=== PATIENT | male | born 1950 | race Caucasian/White ===

== ENCOUNTER 2018-07-20 08:38 | Outpatient (CLI) | payer OTHER ==
[~2018-07-20 08:38] MED LIST: ASPIR 8181 MG; ATORVASTATIN CA80 MG; INTEGRA PLUS C1 EACH; JANUMET XR 50-1 EAC1; NORVASC5 MG; PANTOPRAZOLE SO20 MG; PLAVIX75 MG; SYNTHROID50 MCG; VITAMIN C500 M1
== END 2018-07-20 08:47 | disposition home or self-care (01) ==
LOC: TOM 08:38
DX: K56.600 Partial intestinal obstruction, unspecified as to cause (principal); D64.89 Other specified anemias; Z86.010 Personal history of colon polyps

== ENCOUNTER 2021-07-18 07:28 | Day surgery (SDC) | payer OTHER | END 2021-07-18 13:15 | disposition home or self-care (01) | LOC: AMB-ENDOS 07:28 | PROVIDERS: ATTEND Internal Medicine Gastroenterology | DX: K31.7 Polyp of stomach and duodenum (principal) ==

== ENCOUNTER 2021-07-29 12:46 | Emergency (ER) | payer OTHER ==
[~2021-07-29] VITALS: Ht 165.1 cm; Wt 83.9 kg
[2021-07-29] MEDS ORDERED: HYDRALAZINE HCL25 MG PO (13:15)
[2021-07-29] MEDS ORDERED: B-TREX (13:16)
[2021-07-29] MEDS ORDERED: PEPCID AC20 MG PO (19:28)
== END 2021-07-29 19:39 | disposition home or self-care (01) ==
LOC: ER 12:46
DX: R19.7 Diarrhea, unspecified (principal); E87.6 Hypokalemia

== ENCOUNTER → 2021-09-11 | Emergency (ER) | payer OTHER ==
[~2021-09-11] VITALS: Ht 165.1 cm; Wt 83.9 kg
[~2021-09-11] MED LIST changes: +B-TREX; +CLOTRIMAZOLE-BE15 G1; +FAMOTIDINE20 MG; +HYDRALAZINE HCL25 MG PO; +PEPCID AC20 MG PO; +VITAMIN D350 MCG
== END | disposition left against medical advice (07) ==
LOC: ER 18:23
DX: Z53.20 Procedure and treatment not carried out because of patient's decision for unspecified reasons (principal)

== ENCOUNTER 2021-09-14 12:38 | Inpatient (IN) | payer OTHER ==
[~2021-09-14] VITALS: Ht 165.1 cm; Wt 81.6 kg
[~2021-09-14 12:38] MED LIST changes: -CLOTRIMAZOLE-BE15 G1; -FAMOTIDINE20 MG; -VITAMIN D350 MCG
[2021-09-16] MEDS ORDERED: FAMOTIDINE20 MG (16:36)
[2021-09-16] MEDS ORDERED: CLOTRIMAZOLE-BE15 G1 (16:36)
[2021-09-16] MEDS ORDERED: VITAMIN D350 MCG (16:36)
== END 2021-09-26 18:59 | disposition home or self-care (01) | DRG 311 ==
LOC: ER 12:38 → MEDI 09-15 14:48 → SEC-K 09-15 14:48 → MEDI 09-16 08:43 → SEC-K 09-16 17:38 → MEDJ 09-18 14:56 → MEDI 09-18 20:22
PROVIDERS: ADMIT Specialist; ATTEND Specialist
PROC: B24BZZZ Ultrasonography of Heart with Aorta (ICD-10-PCS; 2021-09-15)
PROC: 30233N1 Transfusion of Nonautologous Red Blood Cells into Peripheral Vein, Percutaneous Approach (ICD-10-PCS; principal; 2021-09-17)
PROC: BW38ZZZ Magnetic Resonance Imaging (MRI) of Head (ICD-10-PCS; 2021-09-17)
PROC: 5A09357 Assistance with Respiratory Ventilation, Less than 24 Consecutive Hours, Continuous Positive Airway Pressure (ICD-10-PCS; 2021-09-20)
PROC: 02HV33Z Insertion of Infusion Device into Superior Vena Cava, Percutaneous Approach (ICD-10-PCS; 2021-09-21)
PROC: BW21ZZZ Computerized Tomography (CT Scan) of Abdomen and Pelvis (ICD-10-PCS; 2021-09-22)
PROC: B54MZZZ Ultrasonography of Right Upper Extremity Veins (ICD-10-PCS; 2021-09-23)
DX: I24.9 Acute ischemic heart disease, unspecified (principal); U07.1 COVID-19; I63.89 Other cerebral infarction; J18.9 Pneumonia, unspecified organism; G45.8 Other transient cerebral ischemic attacks and related syndromes; R06.02 Shortness of breath; I34.0 Nonrheumatic mitral (valve) insufficiency; R09.02 Hypoxemia; E11.9 Type 2 diabetes mellitus without complications; Z79.4 Long term (current) use of insulin; E03.8 Other specified hypothyroidism; I10 Essential (primary) hypertension; D64.9 Anemia, unspecified; Z95.2 Presence of prosthetic heart valve; F01.50 Vascular dementia, unspecified severity, without behavioral disturbance, psychotic disturbance, mood disturbance, and anxiety; I77.89 Other specified disorders of arteries and arterioles; D50.0 Iron deficiency anemia secondary to blood loss (chronic); K74.69 Other cirrhosis of liver; Z99.89 Dependence on other enabling machines and devices; Z79.01 Long term (current) use of anticoagulants
CPT/HCPCS: 70544

== ENCOUNTER 2021-10-09 09:24 | Inpatient (IN) | payer OTHER ==
[~2021-10-09] VITALS: Ht 165.1 cm
[~2021-10-09 09:24] MED LIST changes: +CLOTRIMAZOLE-BE15 G1; +FAMOTIDINE20 MG; +VITAMIN D350 MCG
== END 2021-10-16 17:01 | disposition home or self-care (01) | DRG 65 ==
LOC: ER 09:24 → SURH 19:27
PROVIDERS: ADMIT Specialist; ATTEND Specialist
PROC: B020ZZZ Computerized Tomography (CT Scan) of Brain (ICD-10-PCS; 2021-10-09)
PROC: 4A12X4Z Monitoring of Cardiac Electrical Activity, External Approach (ICD-10-PCS; principal; 2021-10-11)
PROC: BW40ZZZ Ultrasonography of Abdomen (ICD-10-PCS; 2021-10-11)
PROC: B030Y0Z Magnetic Resonance Imaging (MRI) of Brain using Other Contrast, Unenhanced and Enhanced (ICD-10-PCS; 2021-10-11)
DX: I63.233 Cerebral infarction due to unspecified occlusion or stenosis of bilateral carotid arteries (principal); I50.32 Chronic diastolic (congestive) heart failure; I11.0 Hypertensive heart disease with heart failure; I25.10 Atherosclerotic heart disease of native coronary artery without angina pectoris; I48.91 Unspecified atrial fibrillation; K74.69 Other cirrhosis of liver; E03.8 Other specified hypothyroidism; E11.9 Type 2 diabetes mellitus without complications; K52.89 Other specified noninfective gastroenteritis and colitis; D50.0 Iron deficiency anemia secondary to blood loss (chronic); I34.0 Nonrheumatic mitral (valve) insufficiency; E78.49 Other hyperlipidemia; F01.50 Vascular dementia, unspecified severity, without behavioral disturbance, psychotic disturbance, mood disturbance, and anxiety; Z86.16 Personal history of COVID-19; Z79.84 Long term (current) use of oral hypoglycemic drugs; Z95.4 Presence of other heart-valve replacement; Z79.01 Long term (current) use of anticoagulants
CPT/HCPCS: 70552

== ENCOUNTER 2022-02-25 00:45 | Inpatient (IN) | payer OTHER ==
[~2022-02-25] VITALS: Ht 165.1 cm; Wt 72.1 kg
[2022-02-26] MEDS ORDERED: JANUMET 50-5001 EACH (13:19)
[2022-02-26] MEDS ORDERED: CILOSTAZOL100 MG (13:19)
[2022-02-26] MEDS ORDERED: PANTOPRAZOLE SO40 MG (13:19)
[2022-02-26] MEDS ORDERED: LISINOPRIL20 MG (13:20)
[2022-02-26] MEDS ORDERED: HYDRALAZINE HCL50 MG (13:20)
[2022-02-26] MEDS ORDERED: ELIQUIS5 MG (13:20)
[2022-02-26] MEDS ORDERED: ST. JOSEPH ASPI81 M2 (13:20)
[2022-02-26] MEDS ORDERED: LOPRESSOR25 MG (13:20)
[2022-03-04] MEDS ORDERED: HYDRALAZINE HCL25 MG PO (16:13)
[2022-03-04] MEDS ORDERED: CARVEDILOL3.125 MG PO (16:13)
[2022-03-04] MEDS ORDERED: LASIX40 MG PO (16:13)
[2022-03-04] MEDS ORDERED: CARdura 2MG TABLET PO (16:13)
[2022-03-04] MEDS ORDERED: LEVOTHYROXINE25 MCG PO (16:13)
[2022-03-04] MEDS ORDERED: LOSARTAN POTAS100 MG PO (16:13)
[2022-03-04] MEDS ORDERED: Neurin-Sl Tablet Sl SL (16:13)
[2022-03-04] MEDS ORDERED: LIPITOR40 MG PO (16:13)
== END 2022-03-04 20:57 | disposition home or self-care (01) | DRG 280 ==
LOC: ER 00:45 → EDBD 00:50 → ER 00:50 → ICU 14:22 → ICU-2 14:22 → ICU 17:24 → SURH 02-28 19:16 → ICU 02-28 19:17 → SURH 02-28 23:28
PROVIDERS: ADMIT Internal Medicine; ATTEND Internal Medicine
PROC: 30233N1 Transfusion of Nonautologous Red Blood Cells into Peripheral Vein, Percutaneous Approach (ICD-10-PCS; 2022-02-25)
PROC: 4A12X4Z Monitoring of Cardiac Electrical Activity, External Approach (ICD-10-PCS; principal; 2022-03-01)
DX: I11.0 Hypertensive heart disease with heart failure (principal); I50.33 Acute on chronic diastolic (congestive) heart failure; I21.A1 Myocardial infarction type 2; J90 Pleural effusion, not elsewhere classified; K92.2 Gastrointestinal hemorrhage, unspecified; N17.8 Other acute kidney failure; E83.42 Hypomagnesemia; I48.91 Unspecified atrial fibrillation; D64.9 Anemia, unspecified; E03.8 Other specified hypothyroidism; E11.65 Type 2 diabetes mellitus with hyperglycemia; Z79.4 Long term (current) use of insulin; D50.0 Iron deficiency anemia secondary to blood loss (chronic); Z95.2 Presence of prosthetic heart valve; Z20.822 Contact with and (suspected) exposure to COVID-19; R41.82 Altered mental status, unspecified

== ENCOUNTER 2022-05-12 08:50 | Outpatient (CLI) | payer OTHER ==
[~2022-05-12 08:50] MED LIST changes: +CARVEDILOL3.125 MG PO; +CARdura 2MG TABLET PO; +CILOSTAZOL100 MG; +ELIQUIS5 MG; +HYDRALAZINE HCL50 MG; +JANUMET 50-5001 EACH; +LASIX40 MG PO; +LEVOTHYROXINE25 MCG PO; +LIPITOR40 MG PO; +LISINOPRIL20 MG; +LOPRESSOR25 MG; +LOSARTAN POTAS100 MG PO; +Neurin-Sl Tablet Sl SL; +PANTOPRAZOLE SO40 MG; +ST. JOSEPH ASPI81 M2
== END 2022-05-12 08:52 | disposition home or self-care (01) ==
LOC: NUCLEAR 08:50
PROVIDERS: ATTEND Internal Medicine
DX: I50.30 Unspecified diastolic (congestive) heart failure (principal); I10 Essential (primary) hypertension

== ENCOUNTER 2022-05-18 10:20 | Inpatient (IN) | payer OTHER ==
[~2022-05-18] VITALS: Ht 160 cm; Wt 54.4 kg
[2022-05-18] MEDS ORDERED: TRADJENTA5 MG PO (10:50)
[2022-05-18] MEDS ORDERED: ALDACTONE100 MG PO (10:52)
== END 2022-05-23 01:40 | disposition expired ==
LOC: ER 10:20 → ICU-2 18:52 → ICU 05-20 20:44
PROVIDERS: ADMIT Internal Medicine; ATTEND Internal Medicine
PROC: B24BYZZ Ultrasonography of Heart with Aorta using Other Contrast (ICD-10-PCS; 2022-05-18)
PROC: 4A12X4Z Monitoring of Cardiac Electrical Activity, External Approach (ICD-10-PCS; 2022-05-18)
PROC: 5A09557 Assistance with Respiratory Ventilation, Greater than 96 Consecutive Hours, Continuous Positive Airway Pressure (ICD-10-PCS; principal; 2022-05-19)
PROC: 30233N1 Transfusion of Nonautologous Red Blood Cells into Peripheral Vein, Percutaneous Approach (ICD-10-PCS; 2022-05-19)
PROC: B24BYZZ Ultrasonography of Heart with Aorta using Other Contrast (ICD-10-PCS; 2022-05-22)
PROC: 02HV33Z Insertion of Infusion Device into Superior Vena Cava, Percutaneous Approach (ICD-10-PCS; 2022-05-22)
DX: I11.0 Hypertensive heart disease with heart failure (principal); I50.23 Acute on chronic systolic (congestive) heart failure; I21.A1 Myocardial infarction type 2; J18.9 Pneumonia, unspecified organism; A41.01 Sepsis due to Methicillin susceptible Staphylococcus aureus; R65.21 Severe sepsis with septic shock; J91.8 Pleural effusion in other conditions classified elsewhere; D68.9 Coagulation defect, unspecified; Z79.4 Long term (current) use of insulin; E11.22 Type 2 diabetes mellitus with diabetic chronic kidney disease; D63.8 Anemia in other chronic diseases classified elsewhere; D50.0 Iron deficiency anemia secondary to blood loss (chronic); K76.9 Liver disease, unspecified; Z86.16 Personal history of COVID-19; Z95.2 Presence of prosthetic heart valve; Z86.73 Personal history of transient ischemic attack (TIA), and cerebral infarction without residual deficits; Z66 Do not resuscitate